=== PATIENT | female | born 1975 | race Caucasian/White ===

== ENCOUNTER 2019-05-19 20:07 | Emergency (ER) | payer OTHER ==
--- NOTE | 2019-05-19 20:11 | PDOC ---
History of Present Illness - General Chief Complaint: Injury Stated Complaint: LEFT KNEE INJURY Time Seen by Provider: 05/19/19 20:10 History Source: Patient Exam Limitations: No Limitations - History of Present Illness Initial Comments: 05/19/19 21:16 Pt presents to the ED complaining of the acute onset of L knee pain after her dog hit her from behind in her L knee. States that she fell to the ground and was able to get up but had some difficulty bearing weight on the affected leg. Denies other injuries. Past History - Past Medical History Allergies/Adverse Reactions: Allergies Allergy/AdvReac Type Severity Reaction Status Date / Time fluconazole Allergy Facial Verified 05/19/19 20:14 swelling nystatin Allergy Facial Verified 05/19/19 20:14 swelling FUNGAL MEDS Allergy Facial Uncoded 05/19/19 20:14 swelling Home Medications: Ambulatory Orders Doxepin HCl 150 mg PO HS capsule 04/26/17 Lamotrigine [Lamictal] 100 mg PO HS tablet 04/26/17 Quetiapine Fumarate "Xr" [Seroquel Xr] 200 mg PO HS tablet 04/26/17 Ibuprofen 600 mg PO TID PRN #30 tablet 05/19/19 Psychiatric Problems: Yes (BIPOLAR D/O) - Psycho Social/Smoking Cessation Hx Smoking Status: Yes Smoking History: Current some day smoker Years of Tobacco Use: 20 Have you smoked in the past 12 months: Yes Number of Cigarettes Smoked Daily: 10 'Breaking Loose' booklet given: 01/22/16 Hx Alcohol Use: No Drug/Substance Use Hx: No Substance Use Type: None Review of Systems - Review of Systems Able to Perform ROS?: Yes Is the patient limited Mongolian proficient: No Constitutional: No: Symptoms Reported, See HPI, Chills, Diaphoresis, Fever, Loss of Appetite, Malaise, Night Sweats, Weakness, Weight Stable, Unintentional Wgt. Loss, Unexplained wgt Loss, Other Musculoskeletal: Yes: Joint Pain, Joint Swelling *Physical Exam - Physical Exam Comments: 05/19/19 21:18 Gen: alert, NAD, oriented x 3 EXt: L knee: no effusion. No deformity or ecchymosis. Intact ROM. No tenderness over the tibial plateau. No instability. + medial tenderness. 05/19/19 21:19 Medical Decision Making - Medical Decision Making 05/19/19 21:19 Pt presents to the ED complaining of L knee pain after hit in the knee by her dog. No fracture on x rays per my read. Likely sprain. Will treat with motrin and knee imobilizer and discharge with ortho follow up; Discharge - Discharge Information Problems reviewed: Yes Clinical Impression/Diagnosis: Knee sprain Qualifiers: Encounter type: initial encounter Involved ligament of knee: unspecified ligament Laterality: left Qualified Code(s): S83.92XA - Sprain of unspecified site of left knee, initial encounter Condition: Good - Admission No - Additional Discharge Information Health Concerns: You came to the ED complaining of pain in your knee. We did xrays, which were negative for fracture. you may still have an injury to the ligaments in your knee. You should return to the ED for worsening pain and swelling, or other new or worsening symptoms. You should take motrin for pain. Use the knee imbobilizer as needed for comfort. Follow up with orthopedics if your symptoms are not resolved within one week. Prescriptions: Ibuprofen 600 mg PO TID PRN #30 tablet PRN Reason: Pain - Follow up/Referral Referrals: Maral Castro DO [Primary Care Provider] - Rick Turpin DO [Staff Physician] - - Patient Discharge Instructions Patient Printed Discharge Instructions: Knee Sprain - Post Discharge Activity
[2019-05-19 20:20] VITALS: BP 128/76; PULSE 87; TEMP 99.1; BMI 36.3
[2019-05-19] MEDS ORDERED: IBUPROFEN 400 MG TABLET (FP) PO ONE ×2 (21:13→21:21)
== END 2019-05-19 21:26 | disposition home or self-care (01) ==
LOC: FER 20:07
DX: S83.92XA Sprain of unspecified site of left knee, initial encounter (principal); W54.1XXA Struck by dog, initial encounter; Y93.9 Activity, unspecified; Y92.9 Unspecified place or not applicable; F17.210 Nicotine dependence, cigarettes, uncomplicated; F31.9 Bipolar disorder, unspecified; Z88.8 Allergy status to other drugs, medicaments and biological substances
CPT/HCPCS: 73562-TC-LT-FY; 99281-25